=== PATIENT | female | born 1950 | race Caucasian/White ===

== ENCOUNTER → 2016-12-18 | Outpatient (CLI) | payer OTHER | END | disposition home or self-care (01) | LOC: NM 07:39 | PROVIDERS: ATTEND Specialist | DX: J84.9 Interstitial pulmonary disease, unspecified (principal) | CPT/HCPCS: 78800; A9556 ==

== ENCOUNTER → 2016-12-21 | Outpatient (CLI) | payer OTHER | END | disposition home or self-care (01) | LOC: PF 12:01 | PROVIDERS: ATTEND Specialist | DX: J84.9 Interstitial pulmonary disease, unspecified (principal); I27.2 Other secondary pulmonary hypertension | CPT/HCPCS: 94060; 94727; 94729 ==

== ENCOUNTER → 2017-01-18 | Outpatient (CLI) | payer OTHER | END | disposition home or self-care (01) | LOC: CARD 08:39 | PROVIDERS: ATTEND Specialist | DX: I27.2 Other secondary pulmonary hypertension (principal) | CPT/HCPCS: 93306 ==